=== PATIENT | male | born 1975 | race Two or more races ===

== ENCOUNTER 2018-06-24 14:28 | Outpatient (CLI) | payer OTHER ==
--- NOTE | 2018-06-25 11:57 | MRI Report ---
Reason: PAIN IN UNSPECIFIED ANKLE JOINTS OF UNSPECIFIED Procedure Date: 06/24/2018 Accession Number: [id number] / [id number] Procedure: MRI - Ankle LT W/O CPT Code: FULL RESULT: EXAM: LEFT ANKLE/HINDFOOT MRI WITHOUT CONTRAST EXAM DATE: 06/24/2018 03:35 PM. CLINICAL HISTORY: Pain in unspecified ankle. Joints of unspecified. COMPARISON: None. TECHNIQUE: Multiplanar, multisequence T1-weighted and fluid-sensitive sequences of the ankle/hindfoot without contrast. Other: None. FINDINGS: Bones: Possible osseous body or fractured spur 4 mm anterior ankle. Anterior lateral distal tibia osteophyte. Articular Cartilage: Mild chondromalacia anterior ankle joint. Ligaments: The anterior and posterior tibiofibular, anterior and posterior talofibular, and calcaneofibular ligaments are intact. The deep and superficial deltoid and spring ligaments are intact. Anterior Tendons: The tibialis anterior, extensor hallucis longus, and extensor digitorum longus tendons are unremarkable. Medial Tendons: The tibialis posterior, flexor digitorum longus, and flexor hallucis longus tendons are unremarkable. Lateral Tendons: The peroneus brevis and longus are unremarkable. Achilles Tendon: The Achilles tendon is unremarkable. Musculature: No edema or fatty atrophy. Other: Small anterior ankle joint fluid. The contents of the sinus tarsi and tarsal tunnel are unremarkable. No plantar fasciitis. The subcutaneous tissues are unremarkable. IMPRESSION: 1. Small anterior ankle joint fluid with mild chondromalacia anterior ankle joint. 2. Spurring is noted of the anterior lateral distal tibia and there is suspicion for anterior ankle 4 mm osseous or loose body (image 17 series 801 and image 11 series 501). [facility] MUSCULOSKELETAL RADIOLOGY SECTION
== END 2018-06-24 14:29 | disposition home or self-care (01) ==
LOC: DI 14:28
PROVIDERS: ATTEND Student in an Organized Health Care Education/Training Program
DX: M94.272 Chondromalacia, left ankle and joints of left foot (principal); M76.892 Other specified enthesopathies of left lower limb, excluding foot